=== PATIENT | female | born 1955 | race Caucasian/White ===

== ENCOUNTER 2018-02-27 09:29 | Emergency (ER) | payer BC, OTHER ==
[2018-02-27 09:49] VITALS: TEMP 98.8; BMI 27.1
--- NOTE | 2018-02-27 10:31 | PDOC ---
History of Present Illness - General Chief Complaint: Weakness Stated Complaint: GENERALIZED NUMBNES TO UPPER BODY Time Seen by Provider: 02/27/18 09:49 - History of Present Illness Initial Comments: 02/27/18 11:12 Chief complaint: Tingling History of present illness: Patient was standing at her desk this morning, suddenly became lightheaded, with tingling in both arms and legs. This subsided and several minutes and the patient feels fine at present Review of systems: Denies fever/chills, headache, sore throat, cough, chest pain , shortness of breath, abdominal pain, nausea, vomiting, diarrhea, visual or focal neurologic symptoms, unsteadiness of gait. Remainder systems reviewed and found to be negative Past medical history: Patient is healthy female, breast cancer 4 years ago, lumpectomy, chemotherapy and radiation, in remission. On hormone therapy. Otherwise no other medical problems including cardiac, pulmonary, or neurological Social history, denies acute anxiety or panic attacks in the past, but does see a psychotherapist for minor mental health issues. No tobacco alcohol or nonprescription drugs. Employed, stable home and family Family history: Reviewed and significant only for COPD in her father. No cardiac , pulmonary, or neurologic diseases. No diabetes or other metabolic diseases Physical exam: Alert and oriented well-developed well-nourished no acute distress cheerful and cooperative. Completely asymptomatic at present Afebrile, vital signs normal PERRLA, fundi benign with sharp disc margins and good central venous pulsations , ENT clear Neck supple without bruit mass or nodes Lungs clear with full breath sounds throughout bilaterally CV regular without murmur rub or gallop pulses full and symmetric no JVD or edema no bruits Abdomen soft nontender without mass or organomegaly Extremities no CCE Skin clear, no rash, adequate turgor and wet mucous membranes Neurological C2 to 12 intact. Strength full and symmetric. No focal sensory or motor deficits. Gait stable and unimpaired. Although she denies anxiety, patient appears somewhat high strung and anxious. Impression: Anxiety, panic attack Plan: EKG is normal. Reassure. Return to ER if further symptoms. Otherwise follow-up with primary physician and psychotherapist, with whom she has an appointment later today. Fully ambulatory and in no distress, with no symptoms, at discharge with friend to follow-up as recommended Past History - Past Medical History Allergies/Adverse Reactions: Allergies Allergy/AdvReac Type Severity Reaction Status Date / Time No Known Allergies Allergy Verified 02/27/18 09:31 Home Medications: Ambulatory Orders Ca Carbonate/Vitamin D3/Vit K [Viactiv Tablet Chew] 1 each PO DAILY 12/16/14 Cholecalciferol (Vitamin D3) [Vitamin D-3] 2,000 unit PO DAILY 12/16/14 Exemestane [Aromasin -] 25 mg PO DAILY 12/16/14 Levothyroxine [Synthroid -] 25 mcg PO DAILY 12/16/14 Simvastatin [Zocor -] 20 mg PO HS 12/16/14 Magnesium 30 mg PO DAILY 02/27/18 Anemia: No Asthma: No Cancer: Yes (LEFTBREAST-DX 10/2013) Cardiac Disorders: No CVA: No COPD: No CHF: No DVT: No Dementia: No Diabetes: No GI Disorders: No Disorders: No HTN: No Hypercholesterolemia: Yes (DX 2008) Liver Disease: No Seizures: No Thyroid Disease: Yes (HYPOTHYROIDISM) - Surgical History Abdominal Surgery: No Appendectomy: No Cardiac Surgery: No Cholecystectomy: No Lung Surgery: No Neurologic Surgery: No Orthopedic Surgery: No - Suicide/Smoking/Psychosocial Hx Smoking History: Never smoked Have you smoked in the past 12 months: No Information on smoking cessation initiated: No Hx Alcohol Use: Yes (SOCIAL) Drug/Substance Use Hx: No Substance Use Type: Alcohol Hx Substance Use Treatment: No *Physical Exam - Vital Signs Last Vital Signs Temp Pulse Resp BP Pulse Ox 98.8 F 95 H 20 167/92 99 02/27/18 09:30 02/27/18 09:30 02/27/18 09:30 02/27/18 09:30 02/27/18 09:30 *DC/Admit/Observation/Transfer Diagnosis at time of Disposition: Anxiety - Discharge Dispostion Disposition: HOME Condition at time of disposition: Improved Admit: No - Referrals - Patient Instructions Printed Discharge Instructions: DI for Anxiety -- Adult Additional Instructions: Return to ER for further evaluation if symptoms recur or other significant symptoms develop See your primary physician and psychotherapist as scheduled. - Post Discharge Activity Forms/Work/School Notes: Back to Work
[2018-02-27 10:54] VITALS: BP 147/97; PULSE 80
--- NOTE | 2018-03-01 10:03 | EKG ---
Test Reason : Blood Pressure : / mmHG Vent. Rate : 080 BPM Atrial Rate : 080 BPM P-R Int : 140 ms QRS Dur : 082 ms QT Int : 378 ms P-R-T Axes : 051 057 031 degrees QTc Int : 435 ms NORMAL SINUS RHYTHM WITH SINUS ARRHYTHMIA NORMAL ECG NO PREVIOUS ECGS AVAILABLE Confirmed by ANABELLE REGALADO MD ([id number]) on 03/01/2018 10:02:56 AM Referred By: FERNANDA SOMMER Confirmed By:ANABELLE REGALADO MD
== END 2018-02-27 10:58 | disposition home or self-care (01) ==
LOC: FER 09:29
DX: F41.9 Anxiety disorder, unspecified (principal); Z85.3 Personal history of malignant neoplasm of breast; E78.00 Pure hypercholesterolemia, unspecified; E03.9 Hypothyroidism, unspecified
CPT/HCPCS: 93005; 93010; 99282-25